=== PATIENT | female | born 1955 | race Caucasian/White ===

== ENCOUNTER 2019-08-10 16:06 | Inpatient (IN) | payer MEDICARE ==
[~2019-08-10] VITALS: Ht 165.1 cm; Wt 50.3 kg
--- NOTE | 2019-08-10 16:10 | NUR ---
called in waiting room. no answer.
--- NOTE | 2019-08-10 16:22 | NUR ---
called in waiting room. no answer.
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
[2019-08-10 17:11] LABS: BASOPHILS # (AUTO) 0.1 /CMM (0.0-0.2); BASOPHILS % (AUTO) 1.1 % (0.0-2.0); EOSINOPHILS % (AUTO) 2.6 % (0.0-6.0); HEMATOCRIT 40 % (33-45); HEMOGLOBIN 13.1 g/dL (11.5-14.8); LYMPHOCYTES # (AUTO) 1.8 /CMM (0.8-4.8); LYMPHOCYTES % (AUTO) 25.4 % (20.0-44.0); MEAN CORPUSCULAR HGB CONC 33 g/dl (31.0-36.0); MEAN CORPUSCULAR VOLUME 96 fL (82-100); MONOCYTES # (AUTO) 0.7 /CMM (0.1-1.30); MONOCYTES % (AUTO) 9.9 % (2.0-12.0); NEUTROPHILS # (AUTO) 4.4 /CMM (1.8-8.9); PLATELET COUNT (AUTO) 302 /CMM (150-450); RED BLOOD CELL COUNT(AUTO) 4.18 MIL/uL (4.0-5.2); WHITE BLOOD COUNT (AUTO) 7.3 K/uL (4.3-11.0)
[2019-08-10 17:22] LABS: CARBON DIOXIDE 32 mmol/L (21-32); CHLORIDE 104 mmol/L (98-107); CREATININE 0.9 mg/dL (0.6-1.3); GLUCOSE 100 mg/dL (74-106); POTASSIUM 3.9 mmol/L (3.5-5.1); SODIUM SERUM 140 mmol/L (136-145); UREA NITROGEN, BLOOD 12 mg/dL (7-18)
[2019-08-10 17:33] LABS: APPEARANCE,URINE Clear (CLEAR); BILIRUBIN,URINE Negative (NEGATIVE); BLOOD, URINE Negative Ery/uL (NEGATIVE); COLOR,URINE Yellow (YELLOW); KETONES,URINE Negative (NEGATIVE); LEUKOCYTE ESTERASE ,URINE Small (NEGATIVE); NITRITE, URINE Negative (NEGATIVE); PH,URINE 6.5 (5.0-8.0); PROTEIN,URINE Negative (NEGATIVE); UGLUCOSE Negative (NEGATIVE); UROBILINOGEN,URINE 0.2 EU/dL (0.2)
[2019-08-10 17:35] LABS: ALANINE AMINOTRANSFERASE 19 U/L (12-78); ALCOHOL, BLOOD < 3 mg/dL (0-0); ALKALINE PHOSPHATASE 86 U/L (46-116); ASPARTATE AMINOTRANSFERASE 17 U/L (15-37); BILIRUBIN,DIRECT 0.1 mg/dL (0.0-0.2); BILIRUBIN,TOTAL 0.3 mg/dL (0.2-1.0); TOTAL PROTEIN, SERUM 7.8 g/dL (6.4-8.2)
[2019-08-10 17:36] LABS: ACETAMINOPHEN < 5 ug/ml (10-30); SALICYLATE 1.3 mg/dL (2.8-20.0)
[2019-08-10 17:46] LABS: RBC,URINE 0-2 /HPF (0-2)
[2019-08-10 17:47] LABS: BACTERIA,URINE Rare /HPF (None Seen); SQUAMOUS EPITHELIAL CELL,UR Few /HPF (None Seen); URINE AMORPHOUS URATE Few /HPF (None Seen)
--- NOTE | 2019-08-10 19:00 | NUR ---
daughter alexandre left contact # [phone]
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
--- NOTE | 2019-08-10 20:10 | NUR ---
CALLED SUP FOR BED
--- NOTE | 2019-08-10 20:33 | NUR ---
REPORT GIVEN TO [employer].
--- NOTE | 2019-08-10 21:59 | NUR ---
PATIENT TRANSFERRED TO [facility]. PATIENT IN STABLEC ONDITION.
[2019-08-10 22:00] VITALS: BP 128/70
[2019-08-10] MEDS ORDERED: MAG HYDROX/AL HYDROX/SIMETH 30 ML UDC PO PRN (22:30)
[2019-08-10] MEDS ORDERED: BLOOD SUGAR DIAGNOSTIC 1 EACH STRIP IN ONE (22:30)
[2019-08-10] MEDS ORDERED: MAGNESIUM HYDROXIDE 30 ML UDC PO PRN (22:30)
[2019-08-10] MEDS ORDERED: ACETAMINOPHEN 325 MG TABLET PO PRN (22:30)
--- NOTE | 2019-08-10 22:30 | NUR ---
RN NOTES : PT. REFUSED TO CHECK INTIALLY BLOOD SUGAR , ENCOURAGED X3 EXPLINED RISKS AND BENEFITS STILL REFUSED, PER PT. I DON'T WANTS CHECK AT THIS TIME.
[2019-08-10] MEDS ORDERED: METH-406 PO (22:44)
[2019-08-10] MEDS ORDERED: ATEN25TA (22:44)
[2019-08-10] MEDS ORDERED: HYDR-3980 (22:44)
[2019-08-10] MEDS ORDERED: OLAN15TA3 PO (22:44)
[2019-08-10] MEDS ORDERED: SUCR1TAB (22:44)
[2019-08-10] MEDS ORDERED: DICL100G34 (22:44)
[2019-08-10] MEDS ORDERED: DIPH50CA4 PO (22:44)
[2019-08-10] MEDS ORDERED: DOXE10CA2 (22:44)
[2019-08-10] MEDS ORDERED: FLUT16SP16 (22:44)
[2019-08-10] MEDS: LORAZEPAM 0.5 MG TABLET PO PRN (23:30)
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
[2019-08-11] MEDS: diphenhydrAMINE HCL 50 MG CAPSULE PO PRN ×2 (01:46→23:00)
--- NOTE | 2019-08-11 06:45 | NUR ---
RN NOTES: PLACED CALLED AT THIS NUMBER, AND LEFT MESSAGES # [phone]. ENDORSE TO ON COMING SHIFT .
[2019-08-11 07:16] LABS: CREATININE 0.8 mg/dL (0.6-1.3)
[2019-08-11 08:00] VITALS: BP 108/73
[2019-08-11] MEDS: FLUTICASONE PROPIONATE 16 GM BOTTLE NS SCH (08:18)
[2019-08-11] MEDS: ATENOLOL 25 MG TABLET PO SCH (08:18)
[2019-08-11] MEDS ORDERED: METHOCARBAMOL (750MG) 750 MG TABLET PO SCH (09:00)
[2019-08-11] MEDS ORDERED: SUCRALFATE 1 G TABLET PO SCH (09:00)
[2019-08-11] MEDS ORDERED: SUCRALFATE 1 G TABLET PO PRN (09:30)
[2019-08-11] MEDS: LORAZEPAM 0.5 MG TABLET PO PRN (11:45)
--- NOTE | 2019-08-11 13:55 | NUR ---
Family Contact: SW called the pts daughter, Jyotsna ([phone]), and left a voicemail stating that the SW would like to discuss the pts initial treatment and initial discharge plan.
--- NOTE | 2019-08-11 14:42 | NUR ---
Initial Discharge Plan: Pt currently resides in a mobile home located at [address] [place] [address]; ([phone]). Per pt, she would be interested in a fci placement. SW will work with the pt and the MD regarding appropriate discharge planning. SW will form a safe and proper discharge plan.
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
[2019-08-11] MEDS ORDERED: DICLOFENAC TOPICAL 100 GM GEL..GM. TP PRN ×2 (15:30)
[2019-08-11 16:00] VITALS: BP 102/65
[2019-08-11 20:00] VITALS: BP 101/66
[2019-08-11] MEDS: OLANZAPINE 10 MG TABLET PO SCH ×3 (21:34→22:00)
--- NOTE | 2019-08-11 21:45 | NUR ---
RN NOTES PATIENT REFUSED TAKING MEDICATION, ZYPREXA (OLANZAPINE) 15 MG PO HS ORDERED, AND STATED "I WILL ONLY TAKE ZYPREXA ZYDIS, THE ONE THAT MELTS IN MY MOUTH, ITS A YELLOW PILL"... INFORMED PATIENT ABOUT THE RISK AND BENEFITS OF MEDICATION, BUT PATIENT STILL REFUSED. WILL MONITOR ACCORDINGLY.
[2019-08-12 08:00] VITALS: BP 108/63
[2019-08-12] MEDS: ATENOLOL 25 MG TABLET PO SCH (08:29)
[2019-08-12] MEDS: FLUTICASONE PROPIONATE 16 GM BOTTLE NS SCH (08:33)
[2019-08-12] MEDS: OLANZAPINE 5 MG/TAB.RAPDIS PO SCH ×2 (08:35→20:51)
[2019-08-12] MEDS: LORAZEPAM 0.5 MG TABLET PO PRN ×2 (10:21→21:39)
--- NOTE | 2019-08-12 10:30 | NUR ---
RN NOTE- PT AGITATION. ATIVAN TO BE GIVEN. PULLED FROM [employer]. PT REFUSED RX. RETURNED TO [facility]
--- NOTE | 2019-08-12 11:46 | NUR ---
Family Contact: SW called the pts daughter, Jyotsna ([phone]), and left a voicemail stating that the SW is trying to return her call.
--- NOTE | 2019-08-12 12:57 | NUR ---
GROUP NOTE: SW encouraged pt to attend group discussing "issues with current hospitalization." Pt was verbally aggressive and using profanity. SW unable to provide intervention due to pts current mental state of leroy.
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
[2019-08-12] MEDS ORDERED: OLANZAPINE 10 MG VIAL IM ONE (13:00)
--- NOTE | 2019-08-12 15:28 | NUR ---
Family Contact: SW called the pts daughter, Jyotsna ([phone]), and informed her about the pts progress and updated her on the pts medications and discharge plan.
[2019-08-12 16:00] VITALS: BP 108/64
--- NOTE | 2019-08-12 19:45 | NUR ---
GPS RN NOTE RECEIVED PATIENT IN BED. TOLERATING ROOM AIR,. RESPIRATIONS AR EVEN AND UNLABORED. NO S.S SOB NOTED. IN NO APPARENT DISTRESS. A/O X2. ID BAND IS ON. ENVIRONMENTAL CHECKS COMPLETED AT THIS TIME. PATIENT IS CALM, COOPERATIVE DENIES SI/HI AT THIS TIME. BED IS LOW AND LOCKED, HOB ELEVATED 20 DEGREES. ORIENTED TO CALL ARENAS. WILL CONTINUE TO DO Q15MN CHECKS FOR SAFETY AND BEHAVIOR.
[2019-08-12 20:00] VITALS: BP 86/56
--- NOTE | 2019-08-12 20:00 | NUR ---
GPS RN NOTE PATIENTS BP IS LOW. 86/56. ENCOURAGES THE PATIENT TO DRINK FLUIDS. AFTER 2 PITCHERS, REASSESSED PATIENTS BP. NOW 106/66. WILL CONTINUE TO MONITOR.
[2019-08-12 20:19] VITALS: BP 86/56
[2019-08-12 20:45] VITALS: BP 106/66
--- NOTE | 2019-08-12 21:40 | NUR ---
GPS RN NOTE ADMINISTERED PRN ATIVAN 0.5MG PER PATIENTS REQUEST. WILL CONTINUE TO MONITOR.
[2019-08-13 00:45] VITALS: BP 119/67
--- NOTE | 2019-08-13 00:45 | NUR ---
GPS RN NOTE PATIENT STATES SHE WOKE UP WITH A NOSE BLEED. PATIENT DENIES PICKING HER NOSE, HITTING HERSELF, FALLING OR ANY OTHER TYPE OF TRAUMA TO CAUSE NOSE BLEEDING. BP WAS 119/ 67. CHARGE NURSE AWARE. WILL CONTINUE TO MONITOR.
[2019-08-13 08:00] VITALS: BP 101/63
[2019-08-13] MEDS: ATENOLOL 25 MG TABLET PO SCH (08:38)
[2019-08-13] MEDS: FLUTICASONE PROPIONATE 16 GM BOTTLE NS SCH (09:21)
[2019-08-13] MEDS: OLANZAPINE 5 MG/TAB.RAPDIS PO SCH ×2 (09:21→21:09)
[2019-08-13 16:00] VITALS: BP 118/77
[2019-08-13 20:24] VITALS: BP 100/63
[2019-08-13] MEDS: diphenhydrAMINE HCL 50 MG CAPSULE PO PRN (22:33)
[2019-08-14] MEDS: LORAZEPAM 0.5 MG TABLET PO PRN (00:29)
--- NOTE | 2019-08-14 01:06 | NUR ---
GPS RN NOTE, PATIENT HAS A COMPLAINT OF NOT BEING ABLE TO SLEEP AND IS REQUESTING RESTORIL AT THIS TIME. PATIENT VITAL SIGNS ARE STABLE. GAVE RESTORIL 7.5MG PO HS ORDERED. WILL REASSESS FOR INSOMNIA AND I WILL CONTINUE TO MONITOR THIS PATIENT.
[2019-08-14] MEDS: TEMAZEPAM 7.5 MG CAPSULE PO PRN (02:06)
[2019-08-14] MEDS: ATENOLOL 25 MG TABLET PO SCH (07:56)
[2019-08-14] MEDS: FLUTICASONE PROPIONATE 16 GM BOTTLE NS SCH (07:56)
[2019-08-14] MEDS: OLANZAPINE 5 MG/TAB.RAPDIS PO SCH ×2 (08:03→21:11)
[2019-08-14 09:23] VITALS: BP 108/67
[2019-08-14 16:00] VITALS: BP 127/74
--- NOTE | 2019-08-14 20:00 | NUR ---
RN NOTES: PT. REFUSED WEEKLY SKIN REASSESSMENT , AND PICTURES TAKEN , PER PT. MY SKIN IS FINE , WILL CONTINUITY WITH CARE.
[2019-08-14 20:03] VITALS: BP 112/72
[2019-08-15] MEDS: ATENOLOL 25 MG TABLET PO SCH (08:23)
[2019-08-15] MEDS: OLANZAPINE 5 MG/TAB.RAPDIS PO SCH ×2 (08:24→21:16)
[2019-08-15] MEDS: FLUTICASONE PROPIONATE 16 GM BOTTLE NS SCH (08:27)
[2019-08-15] MEDS: LORAZEPAM 0.5 MG TABLET PO PRN ×2 (10:56→18:55)
--- NOTE | 2019-08-15 10:56 | NUR ---
RN NOTE- PT W SCREAMING AND AGITATION. PRN ATIVAN GIVEN
--- NOTE | 2019-08-15 12:24 | NUR ---
SNF Referral: JOCELYN faxed a referral to [facility] with attention with Admissions to the fax number: [phone].
[2019-08-15 16:00] VITALS: BP 118/72
--- NOTE | 2019-08-15 18:55 | NUR ---
RN NOTE- PT W ANXIETY. PRN ATIVAN GIVEN
[2019-08-15 19:51] VITALS: BP 109/59
[2019-08-15] MEDS: TEMAZEPAM 7.5 MG CAPSULE PO PRN (22:49)
[2019-08-16 08:00] VITALS: BP 99/63
[2019-08-16] MEDS: ATENOLOL 25 MG TABLET PO SCH (08:05)
[2019-08-16] MEDS: FLUTICASONE PROPIONATE 16 GM BOTTLE NS SCH (08:29)
[2019-08-16] MEDS: OLANZAPINE 5 MG/TAB.RAPDIS PO SCH ×2 (08:29→21:08)
--- NOTE | 2019-08-16 11:13 | NUR ---
PC Hearing Notification: SW called the pts daughter, Jyotsna ([phone]), and left a voicemail about the hearing and what it entails as well as a quick update regarding a referral being sent for placement.
--- NOTE | 2019-08-16 11:15 | NUR ---
SNF Contact: SW called Gloria ([phone]) from [facility] about the referral that was sent for the pt the previous day. She stated that she will have her DON review the referral and will call the SW back.
--- NOTE | 2019-08-16 11:36 | NUR ---
Family Contact: Pts daughter, Jyotsna ([phone]), called the SW and the PC hearing was discussed. SW went through every possible outcome of the hearing and planned with the pts daughter. SW also informed her that referrals for placement are being sent out for the pt and that once there is an accepting facility SW will inform her.
[2019-08-16] MEDS: METHOCARBAMOL (750MG) 750 MG TABLET PO PRN ×2 (12:39→23:38)
--- NOTE | 2019-08-16 14:38 | NUR ---
Individual Intervention: SW spoke to the pt regarding her discharge plan and informed her that the SW is working on placing her in a fci for a temporary period of time before she returns to her home. Pt stated that she accepts the discharge plan but her main concern at this time is her medications because she does not feel as if it is helping her.
--- NOTE | 2019-08-16 14:48 | NUR ---
SNF Contact: Gloria ([phone]) from [facility] [place] called the SW and stated that the pt was not accepted to their facility due to behavioral issues.
--- NOTE | 2019-08-16 14:49 | NUR ---
Family Contact: Pts daughter, Jyotsna ([phone]), called the SW and the SW informed her that the pts hearing was upheld and that the pt was not accepted to [facility] and so the SW will send out more referrals.
--- NOTE | 2019-08-16 14:57 | NUR ---
SNF Referral: JOCELYN faxed a referral to [facility] with attention with Trisha to the fax number: [phone].
--- NOTE | 2019-08-16 15:40 | NUR ---
SNF Contact: Trisha ([phone]) from [facility] contacted the SW and stated that the pt was accepted to their facility.
[2019-08-16 15:57] VITALS: BP 101/63
[2019-08-16 20:09] VITALS: BP 105/73
[2019-08-16] MEDS: LORAZEPAM 0.5 MG TABLET PO PRN (21:47)
[2019-08-17] MEDS: HYDROCODONE/APAP 10/325MG 1 EA TABLET PO PRN ×2 (00:10→12:57)
[2019-08-17 08:00] VITALS: BP 100/66
[2019-08-17] MEDS: OLANZAPINE 5 MG/TAB.RAPDIS PO SCH ×2 (08:46→21:06)
[2019-08-17] MEDS: ATENOLOL 25 MG TABLET PO SCH (08:47)
[2019-08-17] MEDS: FLUTICASONE PROPIONATE 16 GM BOTTLE NS SCH (09:10)
[2019-08-17] MEDS: METHOCARBAMOL (750MG) 750 MG TABLET PO PRN ×2 (12:57→21:18)
[2019-08-17 16:00] VITALS: BP 102/58
[2019-08-17 20:12] VITALS: BP 95/58
[2019-08-18 08:00] VITALS: BP 103/66
[2019-08-18] MEDS: OLANZAPINE 5 MG/TAB.RAPDIS PO SCH ×2 (08:22→20:15)
[2019-08-18] MEDS: ATENOLOL 25 MG TABLET PO SCH (08:23)
[2019-08-18] MEDS: FLUTICASONE PROPIONATE 16 GM BOTTLE NS SCH (08:24)
--- NOTE | 2019-08-18 09:46 | NUR ---
Family Contact: JOCELYN called the pts daughter, Jyotsna ([phone]), and informed her that the pt will be discharged to [facility] today at around 1pm. SW answered her questions regarding the medication and informed her that the facility will work with her on the pts half-way discharge plan.
--- NOTE | 2019-08-18 09:47 | NUR ---
SNF Contact: JOCELYN contacted Trisha ([phone]) from [facility] and informed him that the pt would be discharged today.
--- NOTE | 2019-08-18 10:04 | NUR ---
DR. ANN GAVE AN ORDER TO D/C HOLD AND D/C TO [facility], TO CONTINUE SAME MEDS INCLUDING PRN AND TO FOLLOW UP WITH PSYCH AND MEDICAL DOCTORS. DR. HEARD MADE AWARE OF THE DISCHARGE AND RECONCILED MEDS.
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
[2019-08-18] MEDS ORDERED: OLANZAPINE 10 MG VIAL IM ONE ×2 (11:30)
[2019-08-18] MEDS ORDERED: LORAZEPAM INJ 2 MG/ML VIAL IM ONE ×2 (11:30)
--- NOTE | 2019-08-18 11:30 | NUR ---
GPS/RN CHEMICAL RESTRAINS MEDS GIVEN PER DR. SETH MACKEY
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
--- NOTE | 2019-08-18 12:18 | NUR ---
Family Contact: JOCELYN called the pts daughter, Jyotsna ([phone]), and informed her that the pt is not stable at this time for discharge and that we will continue to monitor her on the hold. JOCELYN stated that she will keep her updated regarding the discharge plan.
--- NOTE | 2019-08-18 12:31 | NUR ---
Individual Intervention: SW, the pts MD, and the Charge Nurse went to go speak to the pt about her discharge plan together. Pt stated that she wanted a placement close to her hometown [place] and stated that she did not want to be placed in an unfamiliar facility. Pts MD stated that the SW can attempt to look for placement and once a placement is secured the pt will be discharged.
--- NOTE | 2019-08-18 12:31 | NUR ---
SNF Contact: JOCELYN contacted Trisha ([phone]) from [facility] and informed him that the pts MD cancelled the DC order.
[2019-08-18 16:00] VITALS: BP 107/71
[2019-08-18] MEDS: METHOCARBAMOL (750MG) 750 MG TABLET PO PRN (20:15)
[2019-08-18 20:30] VITALS: BP 101/64
[2019-08-18] MEDS: LORAZEPAM 0.5 MG TABLET PO PRN (23:03)
[2019-08-19] MEDS: TEMAZEPAM 7.5 MG CAPSULE PO PRN (00:23)
[2019-08-19 08:00] VITALS: BP 113/65
[2019-08-19] MEDS: OLANZAPINE 5 MG/TAB.RAPDIS PO SCH (08:54)
[2019-08-19] MEDS: ATENOLOL 25 MG TABLET PO SCH (08:55)
[2019-08-19] MEDS: FLUTICASONE PROPIONATE 16 GM BOTTLE NS SCH (08:55)
--- NOTE | 2019-08-19 11:16 | NUR ---
SNF Referral: JOCELYN faxed a referral to [facility] with attention to Meghan to the fax number: [phone].
--- NOTE | 2019-08-19 11:40 | NUR ---
Family Contact: Pts daughter, Jyotsna ([phone]), called the SW and stated that she spoke to the pt regarding her placement and that she would prefer the pt to be placed at [facility]. She stated that she will call back at another time once she speaks to her .
--- NOTE | 2019-08-19 15:00 | NUR ---
Family Contact: SW called the pts daughter, Jyotsna ([phone]), and informed her that the pt has agreed to go to [facility] and therefore the pt will be discharged there today.
--- NOTE | 2019-08-19 15:16 | NUR ---
Discharge Note: Pt was discharged to [facility] located at [address] [place] [address]; ([phone]). Pt was transported via [facility] at 5pm. Pts daughter, Jyotsna ([phone]), was made aware of the placement. Upon discharge, the pt appeared to be alert and oriented. Pt appeared to be in a euthymic mood and presented with a calm affect. Pt denied both suicidal and homicidal ideation as well as auditory and visual hallucinations. Pt will be under the care of her psychiatrist, Dr. Delgado, [place] at [address] [place] [address]; and her falafel cart cook, Dr. Donovan, located at [address] [place] [address]; .
[2019-08-19 16:00] VITALS: BP 118/73
--- NOTE | 2019-08-19 16:32 | NUR ---
GPS/RN PT REFUSED TO SIGN EXIT CARE, REFUSED THE NURSE TO MAKE THE PICTURES ON DISCHARGE. NO SI OR HI REPORTED AT THE TIME OF DISCHARGE. REPORT GIVEN TO [facility] NURSE MICHAEL RN AT [phone] BY ATTENDING NURSE MAX ESPARZA. AMBULANCE SCHEDULED FOR 1633
== END 2019-08-19 17:45 | DRG 885 ==
LOC: ER 16:20 → GPS 21:12
PROVIDERS: ADMIT Psychiatry & Neurology Psychiatry
DX: F25.9 Schizoaffective disorder, unspecified (principal); F29 Unspecified psychosis not due to a substance or known physiological condition; F41.9 Anxiety disorder, unspecified; G89.29 Other chronic pain; K58.9 Irritable bowel syndrome, unspecified; F31.9 Bipolar disorder, unspecified; Z73.6 Limitation of activities due to disability
CPT/HCPCS: 36415; 80048-TC; 80061-TC; 80076-TC; 80305; 81000-TC; 82565-TC; 85025-TC; 87081-TC; G0480; J2060; J3490; Q0163